=== PATIENT | male | born 1950 | race Caucasian/White ===

== ENCOUNTER → 2019-08-20 12:02 | Outpatient (BNVA) | payer MEDICARE, MEDICAID, SELFPAY | PROVIDERS: Visit Provider Orthopaedic Surgery | DX: S52.502A Unspecified fracture of the lower end of left radius, initial encounter for closed fracture (principal); X58.XXXA Exposure to other specified factors, initial encounter | CPT/HCPCS: 73110 ==

== ENCOUNTER 2019-08-22 05:58 | Day surgery (SDC) | payer MEDICARE, MEDICAID, SELFPAY ==
[2019-08-21 10:02] VITALS: BMI 41.3
[2019-08-22] VITALS (11 sets, daily range): BP systolic 125–158; BP diastolic 58–80; PULSE 58–71; RESP 13–21; TEMP 36.2–36.8; O2SAT 93–98
--- NOTE | 2019-08-22 | SCC_ITS ---
Procedure Done: Open reduction internal fixation left distal radius 37.1 seconds of fluoroscopic guidance, for a cumulative dose of 0.78 mGy, was provided to Dr. De Souza by the radiology department. C-arm images of the LEFT wrist were saved for the patient's permanent record. [facility]ERS[facility]
--- NOTE | 2019-08-22 | XR_ITS ---
WS: [id number] C-ARM RADIOGRAPHS LEFT WRIST; 3 IMAGES HISTORY: OR PICS COMPARISON: 08/20/2019 Reduction and fixation distal radial fracture. Comminuted fracture is now in satisfactory position an d alignment. XR/XR wrist LT 2V 34350 IMPRESSION: Status post ORIF and fracture reduction LEFT wrist.
--- NOTE | 2019-08-22 06:14 | ANES.PREANE2 ---
Pre-Anesthetic Assessment Pre-Anesthetic Assessment: Height/Weight: Height 1.7 m Weight 119.748 kg Preop Diagnosis: Left distal radius fracture Proposed Procedure: Operation Date: 08/22/19 07:20 Proposed Procedures p ORIF Wrist 45340 S52.502A(Left) - Guillermo De Souza MD Familial anesthetic complications: No Was Beta Rohini taken within 24 hours: Yes Last intake: NPO > 8 hrs Social: Social History: No alcohol and No tobacco Comment: former smoker Exam: Pre-Anes Outpt Exam: alert, oriented x 3, clear to auscultation bilaterally and regular rate & rhythm Airway: Cervical ROM: WNL MP: 3 Dentition: Chipped Pulmonary: Pulmonary: Sleep apnea and None reported CV/HEM: CV/HEM: CAD, HTN and [place] (X4) Comments: hx of cardiac arrest Hx cardiac stent I(X7) on plavix : : None reported Hepatic: Hepatic: None reported GI: GI: GERD Metabolic: Metabolic: Hyperlipidemia and Morbid obesity Musc/skel: Musc/skel: None reported Neuropsych: Neuropsych: None reported Anesthetic Plan: ASA status: 4 Anesthesia: Eval. for regional block and General Risk of > 500 ml blood loss (7ml/kg in children): No PFSH Anesthesia PFSH: Social History Smoking and tobacco status: former smoker Alcohol intake: former Lives independently: Yes Housing: House Marital status: service: No Current occupational status: retired Data Anesthesia Cardiac Studies: No Data to Display
--- NOTE | 2019-08-22 06:24 | ECG_ITS ---
Measurements Intervals [place] Rate: 56 P: 24 CO: 285 QRS: -11 QRSD: 90 T: 18 QT: 421 QTc: 408 SINUS BRADYCARDIA WITH FIRST DEGREE AV BLOCK INFERIOR MYOCARDIAL INFARCTION [40+ ms Q WAVE AND/OR ST/T ABNORMALITY IN II/aVF], PROBABLY OLD WITH POSTERIOR EXTENSION [PROMIN No previous ECG available for comparison Electronically Signed On 08-22-2019 18:26:51 CDT by Juan Graves M.D. [email or web address]
[2019-08-22] MEDS: sodium chloride 0.9% 1,000 ML 30 ML IV (06:30)
[2019-08-22] MEDS: midazolam 1 mg/mL INJ 2 mL 2 MG IVP (06:44)
--- NOTE | 2019-08-22 06:53 | ANES.PROC ---
Anesthesia Procedures Procedure/Date: 08/22/19 Nerve Block ^: Nerve Block 1: Main Anesthesia: general anesthesia Time Out Performed: Yes Consent: requested by attending/covering physician, from patient, risks and benefits reviewed and patient agrees to proceed Nerve block location: axillary (L with musculocutaneous nerve) Anesthesia monitors applied: pulse oximetry, BP cuff and oxygen Nerve block position: supine Anesthetic Used: ropivicaine 0.5% and with decadron (4 mg) Amount of anesthesia used (mL): 30 Ultrasound used to: recognize landmarks Nerve Stimulator Used?: No Interscalene/Femoral BLK: 4 stimuplex 21 g needle used for position and inplane approach, visualize local anesthetic spread and no vascular puncture identified Injection: neg aspiration of heme and paresthesia +/- Patient Tolerated Procedure: well and no complications Complications: none
--- NOTE | 2019-08-22 07:03 | W.PM.OPSUD ---
Surgery/Procedure H&P Update DATE OF PROCEDURE: August 22, 2019 DATE H&P PERFORMED: 08/20/19 H&P UPDATE INFORMATION: I have reviewed H&P completed within last 30 days PREOP DIAGNOSIS: Left distal radius fracture PLANNED PROCEDURE: Operation Date: 08/22/19 07:20 Proposed Procedures p ORIF Wrist 57070 S52.502A(Left) - Guillermo De Souza MD
[2019-08-22] MEDS: clindamycin 600 MG/50 ML PREMIX 100 MG IV (07:15)
--- NOTE | 2019-08-22 08:35 | P.OP_ITS ---
Operative Report Date of procedure: August 22, 2019 Pre-op Diagnosis: Left distal radius fracture Post-op diagnosis: same Post-op Findings: Extra-articular fracture left distal radius Procedure Done: Open reduction internal fixation left distal radius Implants: [place] bariatrics standard volar plate with 6 distal 2.7 mm locking screws and 4 proximal nonlocking Pathology: none sent Surgeon: Guillermo De Souza Anesthesia: General Estimated blood loss (mL): 25 Tourniquet time (min): 38 Complications: None Findings: The patient had an unstable oblique fracture of the left distal radial metaphysis with approximately 8 mm of a shortening Condition: stable Disposition: PACU Procedure: The patient was taken to the operating room and given 600 mg of clindamycin. He was given a general anesthesi. His left upper extremity was prepped and draped in the usual fashion. A timeout was performed. The arm was exsanguinated tourniquet inflated to 250 mmHg. A 5 cm long incision was made along over the flexor carpi radialis tendon. Dissection was carried down through the tendon sheath. Dissection was carried down bluntly to the pronator quadratus. The pronator quadratus was elevated off of the distal radius leaving a cuff for later repair. There was considerable shortening across the oblique metaphyseal fracture. Closed reduction was accomplished of the distal radius. A reduction clamp was used to maintain reduction. A [place] Variax standard plate was applied. It was fixed distally with 6 locking screws and proximally with 4 bicortical screws. Intraoperative imaging showed excellent position of the hardware. The wound was irrigated with saline. The pronator quadratus was reapproximated with 2-0 Vicryl. Subcutaneous tissues were closed with 2-0 Vicryl. The skin was closed with skin jose. Sterile dressings were applied. The patient was taken to outpatient surgery in stable condition.
--- NOTE | 2019-08-22 08:38 | SUR.PHASEI ---
0837 PATIENT TO PACU AT THIS TIME FROM OR. ORAL AIRWAY IN PLACE, PLACED ON SIMPLE MASK AT 8L, SPO2 93%. DRESSING IN PLACE TO LEFT ARM WITH SLING IN PLACE, CAP REFILL INTACT.
--- NOTE | 2019-08-22 08:49 | SUR.PHASEI ---
0840 ORAL AIRWAY REMOVED AT THIS TIME. SPO2 95% ON SIMPLE MASK AT 8L.
--- NOTE | 2019-08-22 09:14 | SUR.PHASEI ---
0910 PATIENT TO OPS AT THIS TIME. DENIES PAIN. A/OX3. RR EVEN AND UNLABORED. SLING IN PLACE TO LEFT WRIST.
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
== END 2019-08-22 12:05 | disposition home or self-care (01) ==
PROVIDERS: Visit Provider Orthopaedic Surgery
PROC: (CPT 25607; principal; 2019-08-22 07:00)
DX: S52.552A Other extraarticular fracture of lower end of left radius, initial encounter for closed fracture (principal); V29.3XXA Motorcycle rider (driver) (passenger) injured in unspecified nontraffic accident, initial encounter; Z79.82 Long term (current) use of aspirin; I10 Essential (primary) hypertension; Z87.891 Personal history of nicotine dependence; E78.5 Hyperlipidemia, unspecified; I25.2 Old myocardial infarction; E66.9 Obesity, unspecified; Z68.41 Body mass index [BMI] 40.0-44.9, adult; Z82.49 Family history of ischemic heart disease and other diseases of the circulatory system; G47.30 Sleep apnea, unspecified; I25.10 Atherosclerotic heart disease of native coronary artery without angina pectoris; Z95.5 Presence of coronary angioplasty implant and graft; Z79.02 Long term (current) use of antithrombotics/antiplatelets; K21.9 Gastro-esophageal reflux disease without esophagitis; E66.01 Morbid (severe) obesity due to excess calories
CPT/HCPCS: 25607; 12345; 73100; 76000; 93005; 96374; C1713; J0330; J1100; J1580; J2001; J2250; J2370; J2405; J2795; J3010; J3490; J7030

== ENCOUNTER → 2019-09-04 15:22 | Outpatient (BNVA) | payer MEDICARE, MEDICAID, SELFPAY | PROVIDERS: Visit Provider Orthopaedic Surgery | DX: S52.502A Unspecified fracture of the lower end of left radius, initial encounter for closed fracture (principal) | CPT/HCPCS: 73110 ==

== ENCOUNTER 2019-09-04 15:55 | Outpatient (CLI) | payer MEDICARE, MEDICAID, SELFPAY | END 2019-09-04 15:56 | disposition home or self-care (01) | LOC: SPT 15:58 | PROVIDERS: Visit Provider Orthopaedic Surgery | DX: Z46.89 Encounter for fitting and adjustment of other specified devices (principal); S52.592D Other fractures of lower end of left radius, subsequent encounter for closed fracture with routine healing; X58.XXXD Exposure to other specified factors, subsequent encounter; S52.502A Unspecified fracture of the lower end of left radius, initial encounter for closed fracture | CPT/HCPCS: 73110; L3908 ==

== ENCOUNTER → 2019-09-30 09:01 | Outpatient (BNVA) | payer MEDICARE, MEDICAID, SELFPAY | PROVIDERS: Visit Provider Orthopaedic Surgery | DX: S52.502A Unspecified fracture of the lower end of left radius, initial encounter for closed fracture (principal); Z48.89 Encounter for other specified surgical aftercare; S52.572A Other intraarticular fracture of lower end of left radius, initial encounter for closed fracture; X58.XXXA Exposure to other specified factors, initial encounter | CPT/HCPCS: 73110 ==

== ENCOUNTER 2019-10-03 06:00 | Outpatient (RCR) | payer MEDICARE, MEDICAID, SELFPAY | END 2019-10-05 23:59 | disposition home or self-care (01) | LOC: MOT 06:00 | PROVIDERS: Referring Provider Orthopaedic Surgery; Visit Provider Orthopaedic Surgery | DX: Z47.89 Encounter for other orthopedic aftercare (principal) | CPT/HCPCS: 97110; 97140; 97165 ==

== ENCOUNTER 2019-10-06 06:00 | Outpatient (RCR) | payer MEDICARE, MEDICAID, SELFPAY | END 2019-11-04 23:59 | disposition home or self-care (01) | LOC: MOT 06:00 | PROVIDERS: Visit Provider Orthopaedic Surgery | DX: Z47.89 Encounter for other orthopedic aftercare (principal) | CPT/HCPCS: 97022; 97110; 97140 ==

== ENCOUNTER → 2019-10-28 08:20 | Outpatient (BNVA) | payer MEDICARE, MEDICAID, SELFPAY | PROVIDERS: Visit Provider Orthopaedic Surgery | DX: S52.502A Unspecified fracture of the lower end of left radius, initial encounter for closed fracture (principal); Z48.89 Encounter for other specified surgical aftercare; S59.292A Other physeal fracture of lower end of radius, left arm, initial encounter for closed fracture; X58.XXXA Exposure to other specified factors, initial encounter | CPT/HCPCS: 73110 ==

== ENCOUNTER 2019-11-05 06:00 | Outpatient (RCR) | payer MEDICARE, MEDICAID, SELFPAY | END 2019-12-05 23:59 | disposition home or self-care (01) | LOC: MOT 06:00 | PROVIDERS: Visit Provider Orthopaedic Surgery | DX: Z47.89 Encounter for other orthopedic aftercare (principal) | CPT/HCPCS: 97110; 97140 ==

== ENCOUNTER → 2019-11-25 08:01 | Outpatient (BNVA) | payer MEDICARE, MEDICAID, SELFPAY | PROVIDERS: Visit Provider Orthopaedic Surgery | DX: S52.502A Unspecified fracture of the lower end of left radius, initial encounter for closed fracture (principal); Z48.89 Encounter for other specified surgical aftercare; X58.XXXA Exposure to other specified factors, initial encounter | CPT/HCPCS: 73110 ==

== ENCOUNTER → 2020-02-11 10:07 | Outpatient (BNVA) | payer MEDICARE, MEDICAID, SELFPAY | PROVIDERS: Visit Provider Family Medicine | DX: I25.10 Atherosclerotic heart disease of native coronary artery without angina pectoris (principal); I10 Essential (primary) hypertension; R73.9 Hyperglycemia, unspecified; Z13.1 Encounter for screening for diabetes mellitus; H54.62 Unqualified visual loss, left eye, normal vision right eye; Z83.3 Family history of diabetes mellitus; R53.83 Other fatigue; R06.02 Shortness of breath | CPT/HCPCS: 80053; 80061; 83036; 83880; 84443; 85651; 86140 ==

== ENCOUNTER → 2020-05-11 08:54 | Outpatient (BNVA) | payer MEDICARE, MEDICAID, SELFPAY | PROVIDERS: PCP Family Medicine; Visit Provider Family Medicine | DX: I10 Essential (primary) hypertension (principal); F32.1 Major depressive disorder, single episode, moderate; I25.10 Atherosclerotic heart disease of native coronary artery without angina pectoris; E66.01 Morbid (severe) obesity due to excess calories; Z68.41 Body mass index [BMI] 40.0-44.9, adult; G89.4 Chronic pain syndrome | CPT/HCPCS: 80048 ==

== ENCOUNTER → 2021-04-18 09:12 | Outpatient (BNVA) | payer MEDICARE, MEDICAID, SELFPAY | PROVIDERS: PCP Family Medicine; Visit Provider Family Medicine | DX: I10 Essential (primary) hypertension (principal); E78.01 Familial hypercholesterolemia; F32.1 Major depressive disorder, single episode, moderate; G89.4 Chronic pain syndrome; E66.01 Morbid (severe) obesity due to excess calories; Z68.41 Body mass index [BMI] 40.0-44.9, adult | CPT/HCPCS: 80053; 80061 ==

== ENCOUNTER → 2021-10-05 12:09 | Outpatient (BNVA) | payer MEDICARE, MEDICAID, SELFPAY | PROVIDERS: PCP Family Medicine; Visit Provider Internal Medicine Cardiovascular Disease | DX: I25.10 Atherosclerotic heart disease of native coronary artery without angina pectoris (principal); I10 Essential (primary) hypertension; Z95.820 Peripheral vascular angioplasty status with implants and grafts; I25.2 Old myocardial infarction; F32.1 Major depressive disorder, single episode, moderate; G89.4 Chronic pain syndrome; E78.01 Familial hypercholesterolemia; E66.01 Morbid (severe) obesity due to excess calories; Z68.41 Body mass index [BMI] 40.0-44.9, adult; Z87.891 Personal history of nicotine dependence | CPT/HCPCS: 99213 ==

== ENCOUNTER → 2021-10-18 08:23 | Outpatient (BNVA) | payer MEDICARE, MEDICAID, SELFPAY | PROVIDERS: PCP Family Medicine; Visit Provider Family Medicine | DX: I10 Essential (primary) hypertension (principal); I25.10 Atherosclerotic heart disease of native coronary artery without angina pectoris; K21.9 Gastro-esophageal reflux disease without esophagitis; G89.4 Chronic pain syndrome; F32.1 Major depressive disorder, single episode, moderate; F43.9 Reaction to severe stress, unspecified; Z68.41 Body mass index [BMI] 40.0-44.9, adult | CPT/HCPCS: 80053 ==

== ENCOUNTER → 2021-12-28 10:54 | Outpatient (BNVA) | payer MEDICARE, MEDICAID, SELFPAY | PROVIDERS: PCP Family Medicine; Visit Provider Internal Medicine Cardiovascular Disease | DX: Z95.820 Peripheral vascular angioplasty status with implants and grafts (principal); I21.11 ST elevation (STEMI) myocardial infarction involving right coronary artery; G89.4 Chronic pain syndrome; I25.10 Atherosclerotic heart disease of native coronary artery without angina pectoris; E78.5 Hyperlipidemia, unspecified; E66.01 Morbid (severe) obesity due to excess calories; Z68.41 Body mass index [BMI] 40.0-44.9, adult; I10 Essential (primary) hypertension; R07.9 Chest pain, unspecified; Z87.891 Personal history of nicotine dependence | CPT/HCPCS: 80048; 85025; 85610; 99213; 99214 ==

== ENCOUNTER 2022-01-04 05:59 | Outpatient (CLI) | payer MEDICARE, MEDICAID, SELFPAY ==
[2022-01-04] VITALS (11 sets, daily range): BP systolic 125–178; BP diastolic 65–95; PULSE 58–76; RESP 15–23; TEMP 36.8; O2SAT 92–96; BMI 44.4
--- NOTE | 2022-01-04 06:00 | XACV_ITS ---
Exam Room: 1 Ht: 170 cm Wt: 129 kg BSA: 2.54 m2 Gender: Male : 1950 Any Known Allergies: Penicillins Exam Priority: Routine Procedure(s): Procedure Description: Diagnostic procedure Procedure Description: Left Heart Catheterization Procedure Description: Left ventriculography Procedure Description: Coronary Angiography Diagnostic Cath Status: Elective Diagnostic Findings * Patient with unrelenting chest pain. Previous stents to the LAD and circumflex. Requested coronary angiography. * Coronary angiography reveals right coronary artery dominance. The left main coronary artery is normal. The LAD contains stents proximally which are widely patent. The LAD is normal. Circumflex gives off 2 marginal branches. There is stents in the proximal to mid circumflex. These extend down to the second marginal branch. At the end of the stents there is a 50% stenosis of the second obtuse marginal branch. Otherwise the circumflex is normal. The right coronary artery is the dominant vessel and is normal. Conclusions 1. Patent previously placed stents in the LAD and circumflex. 50% mid second OM stenosis. Normal left ventricular function. Recommendations * Continue medical therapy. Interventional RX Recommendation: none Diagnostic RX Recommendation: none Anticoagulation: Heparin Ventriculography Ejection Fraction: 60.0 % Pressures Phase:Rest AO : 128 / 66 ( 90 ) @ 8:10:00 AM 110 / 67 ( 88 ) @ 8:16:00 AM 128 / 59 ( 88 ) @ 8:20:00 AM 132 / 63 ( 91 ) @ 8:20:00 AM LV : 137 / -1 / 15 @ 8:19:00 AM 134 / 0 / 18 @ 8:19:00 AM 136 / -2 / 17 @ 8:20:00 AM Valves Phase:DefaultPhase AV : 7.0 @ 7:28:09 AM AV Mean Gradient: 9.0 @ 7:28:09 AM Clinical Evaluation EBL: 5mL-10mL Procedural Details Procedure Consent Obtained. Pre-Procedure Time Out. Identified patient by full name and date of as verbalized by the patient/guarantor. Does the consent match the physician's order: Yes. Accurate & Complete Informed Consent: Yes. Inpatient/Outpatient History & Physical on Chart: Yes. If H&P is completed, is and addenduem needed: No. Visualize and Verify Site with Patient/Guarantor: N/A. Relevant Radiology Images available: Yes. The risks, benefits, and alternatives of sedation and/or procedure were discussed by physician. The patient agrees to continue. Procedure started. [facility] Clinical Fraility Score: 3: Managing Well. Cyber Systems Operations Specialist Indications: Worsening Angina. Chest Pain Symptom Assessment: Typical Angina Symptoms. Cardiovascular Instability: No. Correct patient, site and procedure confirmed by cath team. PERRLA. Strong, equal hand board design engineer bilaterally. Lungs clear x 5 lobes. IV Site on Arrival: 20 gauge in the left anticubital. IV Fluids: 0.9% NaCl at KVO. 0 mL infused prior to cardiac cath lab manager. Pre Procedural Pulses: bilateral radial was 3+. Pre Procedural Pulses: bilateral dorsalis pedis was 2+. Pre Procedural Pulses: right posterior tibial was 2+. Pre Procedural Pulses: left posterior tibial was Doppled. Oxygen started at 2liters/min via nasal canula. right groin was prepped with chloroprep then draped in the usual sterile fashion. Physician notified. Baseline sample Acquired. HR: 86 BPM. Patient's family unavailable. Physician arrived. Equipment: 6F - Radial. Cardiac Cath Pack. ACIST Manifold Kit Model BT 2000. Heparinized Saline (2 units/mL), 1000 mL bag. Physician scrubbed in. Immediate Pre-Procedure Time Out. Correct Patient: Yes; Correct Procedure: Yes; Correct Site: Yes; Correct Patient Position: Yes; Correct Supplies: Yes; Dried Flammable Prep: Yes; Blood Products Available: N/A. Lidocaine 1% infiltrated to the right radial. Arterial access obtained. A 6 yoruba TIG catheter in over the standard J wire. Multiple views taken of left coronary artery. Catheter redirected to the RCA. Multiple views taken of right coronary artery. Catheter removed over the standard J wire. A 5 yoruba Angled Pig catheter in over the standard J wire. EDP Sample taken: LV 137/-2,15; HR: 57 BPM; SpO2: 94%. LV gram performed in GRANGER @ 10 mL/second for a total of 30 mL. EDP Sample taken: LV 134/-1,18; HR: 65 BPM; SpO2: 94%. Pullback taken: LV 136/-3,17; AO 128/59(88); Mean: 9mmHg, Peak to Peak: 7mmHg, SEP: 17sec/min; HR: 67 BPM; SpO2: 95%. Catheter removed over the standard J wire. Dr. Justice scrubbed out. A TR Band was successful obtaining hemostatsis at the Right Radial artery insertion site. TR band placed. Hemostasis obtained. Post Procedure: Pulses reassessed and unchanged. PERRLA. Strong, equal hand board design engineer bilaterally. No VTE prophylaxis required. Medication's Wasted: Lidocaine 1% = 3 mL. Medication's Wasted: Nitro = 49.8 mg. Medication's Wasted: Heparin = 1000 units. Total IV fluids: 34 mL. Post-op diagnosis: non-obstructive CAD. Complications: none. Estimated blood loss: 5mL-10mL. Responsiveness - Normal response to verbal stimuli; alert and oriented, PERRLA. Airway - Unaffected, no intervention required; spontaneous ventilation. Circulation: W/N/L, pulses unchanged. Nausea/Vomiting: No. Procedure completed. Patient transferred by wheelchair to 1st floor. Vital chart was stopped. Access Site Site: Right Radial artery Sheath Size: 6 Fr Hemostasis Method: TR Band Hemostasis Success: Successful Procedure Medications Start: 7:04 AM Stop: 7:04 AM Medication: Versed Amount: 1 mg Route: I.V. Start: 7:04 AM Stop: 7:04 AM Medication: Fentanyl Amount: 50 mcg Route: I.V. Start: 7:08 AM Stop: 7:08 AM Medication: Nitrogylcerin Amount: 200 mcg Route: I.A. Start: 7:08 AM Stop: 7:08 AM Medication: Versed Amount: 1 mg Route: I.V. Start: 7:12 AM Stop: 7:12 AM Medication: Heparin Amount: 5000 units Route: I.V. I, the attending physician, have reviewed and verified all procedure medications. Yes, all medications given per verbal order History/Risk Factors Hypertension: Yes Dyslipidemia: Yes Peripheral Arterial Disease (PAD): No Myocardial Infarction (GA): Yes Obesity: Yes Renal Disease: No Tobacco Use: Former Prior Interventions PCI: Yes CABG: No Valve Surgery: No Report Signatures Finalized by Dr. Hadley Justice MD on 01/04/2022 07:35 AM
--- NOTE | 2022-01-04 07:53 | PC.NURSE ---
received from cardiac clinical laboratory technician at 0735 via w/c.report received.pt is alert and awake and oriented x 4.sr on monitor.denies pain.right wrist with tr band on and inflated.right hand is warm to touch and with brisk capillary refill.palpable radial pulse noted distal to tr band.no hematoma noted.pt oriented to room environment.instructed in activity restrictions s/p radial artery procedure...and instructed to notify staff for any bleeding,pain,numbness,sob,chest pain or for any concerns at all.pt verb understanding of instructions.
[2022-01-04] MEDS: sodium chloride 0.9% 1,000 ML 100 ML IV (08:21)
[2022-01-04] MEDS: docusate sodium 10 mg/mL (5ml) Liq 50 MG PO (08:22)
[2022-01-04] MEDS: clopidogrel 75 mg Tablet PO (08:22)
[2022-01-04] MEDS: hydroCHLOROthiazide 25 mg Tablet PO (08:23)
[2022-01-04] MEDS: metoprolol tartrate 25 mg Tablet PO (08:23)
[2022-01-04] MEDS: ranolazine (12HR) 500 mg Tablet PO (08:23)
[2022-01-04] MEDS: losartan 50 mg Tablet PO (08:23)
--- NOTE | 2022-01-04 09:53 | P.DS_ITS ---
Discharge Providers Date of Admission: January 04, 2022 Date of Discharge: January 04, 2022 Attending Provider at Admission: lauren Attending Provider at Discharge: Hadley Justice MD Primary Care Provider: Delisa Maciel MD Diagnoses at Discharge Discharge Diagnosis (1) Chest pain: Status: Acute (2) GERD (gastroesophageal reflux disease): Status: Acute Qualifiers: Esophagitis presence: without esophagitis Qualified Code(s): K21.9 - Gastro-esophageal reflux disease without esophagitis (3) S/P angioplasty with stent: Status: Acute (4) Chronic pain syndrome: Status: Acute (5) ASHD (arteriosclerotic heart disease): Status: Acute (6) Hyperlipidemia: Status: Acute Qualifiers: Hyperlipidemia type: familial hypercholesterolemia Qualified Code(s): E78.01 - Familial hypercholesterolemia (7) Obesity: Status: Acute Qualifiers: Obesity type: due to excess calories Obesity classification: adult class 3 (BMI >= 40) Serious obesity comorbidity presence: without serious comorbidity Body mass index: BMI 40.0-44.9 Qualified Code(s): E66.01 - Morbid (severe) obesity due to excess calories; Z68.41 - Body mass index (BMI) 40.0- 44.9, adult (8) Essential hypertension: Status: Acute Reason for Visit Reason for Visit: Z95.820 Brief History: This patient was brought in for elective cardiac catheterization due to advancing chest pain. He declined stress testing as an outpatient. He has known coronary artery disease with previous stents. Hospital Course Hospital Course Patient underwent angiography. The stents are wide open with no restenosis. The right coronary artery is patent. There is a 50 to 60% stenosis just distal to the circumflex stent which is the only area of narrowing in the coronary system. Patient states that his previous angiogram in another state revealed this lesion and he was told by the physician that it was around 40% and not enough to stent. I did not have a functioning FFR wire to test it in the Senior Software Test Engineer. I did not feel strongly that this was a lesion which needed to be stented. The patient has increased his Ranexa on his own to 1 g twice a day. He states that that has helped his angina greatly. Currently, our plan is to leave him on the increased dose of Ranexa and not change his other medications. If he continues to have discomfort there are several options. 1 is to perform a stress test and see if there is ischemia in the distribution of the circumflex. The other would be to take him back to the catheterization laboratory and perform an IFR to see if the lesion was severe enough to stent. Finally, adding Imdur would be another option. I asked him about this today and he states that he has never been tried on Imdur. Physical Exam Narrative: GENERAL: Comfortable at rest HEENT: Exam within normal limits. NECK: Supple without jugular vein distention. The carotid upstroke is normal without bruits. BACK: Exam normal. LUNGS: Clear. HEART: Regular rate and rhythm. ABDOMEN: Benign without organomegaly or tenderness. EXTREMITIES: No edema. At discharge the right wrist is flat, dry without bleeding or hematoma. NEUROLOGIC: Exam normal. SKIN: Unremarkable. Discharge Data Studies Completed and Pending Completed Studies During Hospitalization Category Date Time Status RN SUPPORT SERVICES request for service Routine Exams 01/04/22 06:00 Completed Vitals Last Vital Signs Temp 98.3 F 01/04/22 06:00 Pulse 76 01/04/22 08:15 Resp 23 H 01/04/22 08:15 BP 140/76 01/04/22 08:23 Pulse Ox 95 01/04/22 08:00 O2 Del Method 01/04/22 06:00 Discharge Plan Discharge Patient Disposition: Home Prescriptions: Continued aspirin [Adult Low Dose Aspirin] 81 mg tablet,delayed release (DR/EC) 81 mg PO QPM potassium gluconate 550 mg (90 mg) tablet 550 mg PO BID cyclobenzaprine 5 mg tablet 10 mg PO TID MDD 6 tabs PRN (Reason: muscle spasm) Qty: 30 2RF Rx Instructions: 1 or 2 tabs as needed oxycodone-acetaminophen [Percocet] 5-325 mg tablet 1 tab PO DAILY PRN (Reason: pain) 30 Days Qty: 30 0RF docusate sodium 50 mg capsule 50 mg PO QID Label Comments: pt states he takes 1 tab in am and 3 tabs in pm nitroglycerin [Nitrostat] 0.4 mg tablet, sublingual 0.4 mg SUBLINGUAL Q5M PRN (Reason: Tachyarrhythmias) Qty: 25 3RF etodolac 300 mg capsule 300 mg PO BID PRN (Reason: pain) 30 Days Qty: 60 1RF hydrochlorothiazide 25 mg tablet 25 mg PO DAILY 90 Days Qty: 90 2RF losartan 50 mg tablet 50 mg PO BID 90 Days Qty: 180 2RF metoprolol tartrate 25 mg tablet 25 mg PO BID 90 Days Qty: 180 2RF magnesium 250 mg Tablet 250 mg PO QAM clopidogrel 75 mg tablet 75 mg PO DAILY simvastatin 40 mg tablet 40 mg PO QPM pantoprazole 20 mg tablet,delayed release (DR/EC) 20 mg PO QAM amlodipine 10 mg tablet 10 mg PO QPM Changed ranolazine 500 mg tablet extended release 12 hr 1,000 mg PO BID Qty: 180 3RF Discharge Orders: Discharge Order (Routine); Ordered 01/04/22 Ordered By: Hadley Justice Referrals: Jeaneth Zelaya, SAMPLE MAKER [Nurse Practitioner] - 7-10 days (Check right wrist, chemistry panel, assess medications and chest pain.) Diet: Cardiac Activity: Limit activity as instructed Activity Restrictions/Additional Instructions: No lifting over 5 pounds with the right arm for 2 days. Discharge Attestations Time Spent in Discharge Care*: greater than 30 min Quality Metrics Clinical Quality Measures [ No reported AMI, CVA or VTE this stay] Coding Level of Care Code Established Pt Acute Chg FW DC note Patient Type Established History Detailed Exam Detailed Medical Decision Making Moderate Complexity Diagnoses Chest pain R07.9 GERD (gastroesophageal reflux disease) K21.9 Esophagitis presence: without esophagitis S/P angioplasty with stent Z95.820 Chronic pain syndrome G89.4 ASHD (arteriosclerotic heart disease) I25.10 Hyperlipidemia E78.01 Hyperlipidemia type: familial hypercholesterolemia Obesity E66.01; Z68.41 Obesity type: due to excess calories Obesity classification: adult class 3 (BMI >= 40) Serious obesity comorbidity presence: without serious comorbidity Body mass index: BMI 40.0-44.9 Essential hypertension I10
--- NOTE | 2022-01-04 12:04 | PC.NURSE ---
TR band removed at 1137. No bleeding noted. 2x2 and tegaderm applied.
--- NOTE | 2022-01-04 12:48 | PC.NURSE ---
Patient discharged at 1245. Ambulated to ER exit and left via private vehicle with friend. No bleeding at puncture site. IV removed and dressed with 2x2 and tape. Education provided and patient verbalized understanding.
--- NOTE | 2022-01-06 11:34 | W.PM.OPSUD ---
Surgery/Procedure H&P Update DATE OF PROCEDURE: January 04, 2022 DATE H&P PERFORMED: 12/28/21 CHANGES TO PREVIOUS DOCUMENTATION: None PREOP DIAGNOSIS: chest pain PRIMARY INDICATION FOR PROCEDURE: Known CAD with chest pain PLANNED PROCEDURE: Operation Date: 01/04/22 07:00 Proposed Procedures p Left Cardiac Catheterization 08381,Z95.820,I21.9(Left) - Hadley Justice MD
== END 2022-01-04 13:02 | disposition home or self-care (01) ==
LOC: CCL 06:00 → CSU 07:33
PROVIDERS: PCP Family Medicine; Visit Provider Internal Medicine Cardiovascular Disease
DX: R07.9 Chest pain, unspecified (principal); Z95.820 Peripheral vascular angioplasty status with implants and grafts; G89.4 Chronic pain syndrome; I25.10 Atherosclerotic heart disease of native coronary artery without angina pectoris; E78.01 Familial hypercholesterolemia; E66.01 Morbid (severe) obesity due to excess calories; Z68.41 Body mass index [BMI] 40.0-44.9, adult; I10 Essential (primary) hypertension; E78.5 Hyperlipidemia, unspecified; I25.2 Old myocardial infarction
CPT/HCPCS: 36415; 93458; 96360; 99152; 99153; C1769; C1887; C1894; J1644; J2250; J3010; J3490; J7030; Q9967

== ENCOUNTER → 2022-01-12 09:13 | Outpatient (BNVA) | payer MEDICARE, MEDICAID, SELFPAY | PROVIDERS: PCP Family Medicine; Visit Provider Nurse Practitioner Family | DX: I25.10 Atherosclerotic heart disease of native coronary artery without angina pectoris (principal); I10 Essential (primary) hypertension; Z87.891 Personal history of nicotine dependence | CPT/HCPCS: 99214 ==

== ENCOUNTER → 2022-01-25 16:35 | Outpatient (BNVA) | payer MEDICARE, MEDICAID, SELFPAY | PROVIDERS: PCP Family Medicine; Visit Provider Nurse Practitioner Family | DX: I25.10 Atherosclerotic heart disease of native coronary artery without angina pectoris (principal) | CPT/HCPCS: 80048 ==

== ENCOUNTER → 2022-09-11 09:07 | Outpatient (BNVA) | payer MEDICARE, MEDICAID, SELFPAY | PROVIDERS: PCP Family Medicine; Visit Provider Family Medicine | DX: I10 Essential (primary) hypertension (principal); I25.10 Atherosclerotic heart disease of native coronary artery without angina pectoris; M62.830 Muscle spasm of back; G89.4 Chronic pain syndrome; E78.01 Familial hypercholesterolemia; K21.9 Gastro-esophageal reflux disease without esophagitis; R53.83 Other fatigue; E55.9 Vitamin D deficiency, unspecified; R06.02 Shortness of breath; R53.82 Chronic fatigue, unspecified | CPT/HCPCS: 80053; 82607; 82652; 84443; 85025; 85651; 86038; 86140 ==

== ENCOUNTER → 2023-04-11 10:28 | Outpatient (BNVA) | payer MEDICARE, MEDICAID, SELFPAY | PROVIDERS: PCP Family Medicine; Visit Provider Family Medicine | DX: I10 Essential (primary) hypertension (principal); I25.10 Atherosclerotic heart disease of native coronary artery without angina pectoris; G89.4 Chronic pain syndrome; M62.830 Muscle spasm of back; E11.9 Type 2 diabetes mellitus without complications; E78.5 Hyperlipidemia, unspecified; R73.9 Hyperglycemia, unspecified; Z13.1 Encounter for screening for diabetes mellitus; K21.9 Gastro-esophageal reflux disease without esophagitis; Z00.00 Encounter for general adult medical examination without abnormal findings; Z71.89 Other specified counseling; Z71.85 Encounter for immunization safety counseling; Z53.20 Procedure and treatment not carried out because of patient's decision for unspecified reasons; F10.10 Alcohol abuse, uncomplicated; R06.02 Shortness of breath; F32.1 Major depressive disorder, single episode, moderate; E78.01 Familial hypercholesterolemia | CPT/HCPCS: 80053; 80061; 83036 ==

== ENCOUNTER → 2023-10-09 09:42 | Outpatient (BNVA) | payer MEDICARE, MEDICAID, SELFPAY | PROVIDERS: PCP Family Medicine; Visit Provider Family Medicine | DX: G89.4 Chronic pain syndrome (principal); I25.10 Atherosclerotic heart disease of native coronary artery without angina pectoris; M19.90 Unspecified osteoarthritis, unspecified site | CPT/HCPCS: 80053; 85651; 86140; 86431 ==

== ENCOUNTER → 2024-03-26 15:44 | Outpatient (BNVA) | payer MEDICARE, MEDICAID, SELFPAY | PROVIDERS: PCP Family Medicine; Visit Provider Family Medicine | DX: I10 Essential (primary) hypertension (principal); J44.9 Chronic obstructive pulmonary disease, unspecified | CPT/HCPCS: 80053; 80061; 85025 ==

== ENCOUNTER → 2024-10-21 09:19 | Outpatient (BNVA) | payer MEDICARE, MEDICAID, SELFPAY | PROVIDERS: PCP Family Medicine; Visit Provider Family Medicine | DX: I10 Essential (primary) hypertension (principal) | CPT/HCPCS: 80048 ==